=== PATIENT | male | born 1965 | race Caucasian/White ===

== ENCOUNTER 2020-06-01 11:14 | Inpatient (IN) | payer MEDICARE, OTHER ==
--- NOTE | 2020-06-01 11:20 | BHS.RME ---
Substance Use & Tx History - Substance Use History Heroin Substance amount: 4-5 bgs Frequency of use: Daily Substance route: Inhalation (ex: sniffing or snorting) Date of Last Use: 06/01/20 (midnight) Nicotine Substance amount: 6-8 ciggs Frequency of use: Daily Substance route: Smoking Date of Last Use: 06/01/20 Physical/Psych/Mental Status - Behavior General Behavior: Increased activity (restlessness, agitation) Eye Contact: Normal - Cooperativeness Cooperativeness: Cooperative - Thinking Thought Processes: Tight, Logical, Goal Directed - Physical Health Problems Is patient presently having any pain?: No Does patient presently have any injuries (include location): No Does patient currently have a fever: No Is patient : No COWS - Scale Resting Pulse: 0= [place] 80 or Below Sweatin= No chills or Flushing Restless Observation: 1= Difficult to Sit Still Pupil Size: 1= Pupils >than Normal Bone or Joint Aches: 2= Severe Diffuse Aches Runny Nose/ Eye Tearin= Runny Nose/Eyes GI Upset > 30mins: 2= Nausea/Diarrhea Tremor Observation: 1= Tremor [place], Not Seen Yawning Observation: 1= 1-2x During Session Anxiety or Irritability: 1=Feels Anxious/Irritable Goose Flesh Skin: 0=Smooth Skin COWS Score: 11
--- NOTE | 2020-06-01 13:30 | HP ---
<Chin Michaels - Last Filed: 06/01/20 14:43> COWS - Scale Resting Pulse: 0= [place] 80 or Below Sweatin= No chills or Flushing Restless Observation: 1= Difficult to Sit Still Pupil Size: 1= Pupils >than Normal Bone or Joint Aches: 2= Severe Diffuse Aches Runny Nose/ Eye Tearin= Runny Nose/Eyes GI Upset > 30mins: 2= Nausea/Diarrhea Tremor Observation: 1= Tremor [place], Not Seen Yawning Observation: 1= 1-2x During Session Anxiety or Irritability: 1=Feels Anxious/Irritable Goose Flesh Skin: 0=Smooth Skin COWS Score: 11 CIWA Score - Admission Criteria OASAS Guidelines: Admission for Medically Managed Detox: Requires at least one of the followin. CIWA greater than 12 2. Seizures within the past 24 hours 3. Delirium tremens within the past 24 hours 4. Hallucinations within the past 24 hours 5. Acute intervention needed for co occurring medical disorder 6. Acute intervention needed for co occurring psychiatric disorder 7. Severe withdrawal that cannot be handled at a lower level of care (continued vomiting, continued diarrhea, abnormal vital signs) requiring intravenous medication and/or fluids 8. Admitting History and Physical - Admission Chief Complaint: Patientnis requesting for detox and says.. " I want to stop using drugs". History of Present Illness: 54 yo with history of opiod dependency from 2005 to December 2019 and relapse 4-5 months ago. Pat was last at [facility] from Nov 11 to Nov 14 and did not accept referral to MAT. - Substance Use History Heroin Substance amount: 4-5 bgs Frequency of use: Daily Substance route: Inhalation (ex: sniffing or snorting) Date of Last Use: 06/01/20 (midnight) Nicotine Substance amount: 6-8 ciggs Frequency of use: Daily Substance route: Smoking Date of Last Use: 06/01/20 PMH: hEPATITIS C UNTREATED. PSH: Right inguinal hernia repair Psych: Depression on quatiapine Patient is homeles, living in [address] and has no legal issues. COWS= 11 History Source: Patient Limitations to Obtaining History: No Limitations - Past Medical History Hepatobiliary: Yes: Hepatitis C - Past Surgical History Past Surgical History: Yes: Hernia Repair - Smoking History Smoking history: Current every day smoker Have you smoked in the past 12 months: Yes Aproximately how many cigarettes per day: 10 - Alcohol/Substance Use Hx Alcohol Use: Yes - Social History Usual Living Arrangement: Yes: Other Do you think of yourself as: Declined to answer ADL: Independent Occupation: Unemployed operations and maintenance supervisor History of Recent Travel: No Admission ROS BHS - HPI Allergies/Adverse Reactions: Allergies Allergy/AdvReac Type Severity Reaction Status Date / Time No Known Allergies Allergy Verified 06/01/20 14:23 Exam Limitations: No Limitations - Ebola screening Have you traveled outside of the country in the last 21 days: No Have you had contact with anyone from an Ebola affected area: No Have you been sick,other than usual withdrawal symptoms: No Do you have a fever: No - Review of Systems Constitutional: No Symptoms Reported EENT: reports: No Symptoms Reported Respiratory: reports: No Symptoms reported Cardiac: reports: Other (Left shpulder pain radiating to left arm) GI: reports: No Symptoms Reported : reports: No Symptoms Reported Musculoskeletal: reports: No Symptoms Reported Integumentary: reports: No Symptoms Reported Neuro: reports: No Symptoms reported Endocrine: reports: No Symptoms Reported Hematology: reports: No Symptoms Reported Psychiatric: reports: No Sypmtoms Reported Other Systems: Reviewed and Negative Patient History - Patient Medical History Hx Asthma: No Hx Chronic Obstructive Pulmonary Disease (COPD): No Hx Cardiac Disorders: No Hx Hypertension: No Hx Seizures: No Hx Diabetes: No Hx Gastrointestinal Disorders: No Hx Liver Disease: Yes Hx Genitourinary Disorders: No Hx Sexually Transmitted Disorders: No Hx Renal Disease (ESRD): No Hx Thyroid Disease: No Hx Hepatitis C: Yes Hx Depression: Yes Hx Suicide Attempt: No Hx Schizophrenia: No - Patient Surgical History Past Surgical History: Yes Hx Neurologic Surgery: No Hx Cataract Extraction: No Hx Cardiac Surgery: No Hx Lung Surgery: No Hx Breast Surgery: No Hx Breast Biopsy: No Hx Abdominal Surgery: No Hx Appendectomy: No Hx Cholecystectomy: No Hx Genitourinary Surgery: No Hx Section: No Hx Orthopedic Surgery: No Anesthesia Reaction: No - PPD History Previous Implant?: Yes Documented Results: Negative w/o proof Implanted On Prior [facility] Admission?: No PPD to be Administered?: Yes - Smoking Cessation Smoking history: Current every day smoker Have you smoked in the past 12 months: Yes Aproximately how many cigarettes per day: 10 Hx Chewing Tobacco Use: No Initiated information on smoking cessation: Yes 'Breaking Loose' booklet given: 06/01/20 Admission Physical Exam BHS - Physical General Appearance: Yes: Within Normal Limits, No Apparent Distress, Nourished, Appropriately Dressed HEENTM: Yes: Within Normal Limits, EOMI, Hearing grossly Normal, Normocephalic, Normal Voice Respiratory: Yes: Within Normal Limits, Chest Non-Tender, Lungs Clear, Normal Breath Sounds, No Respiratory Distress, No Accessory Muscle Use Neck: Yes: Within Normal Limits, No masses,lesions,Nodules, Supple, Trachea in good position Breast: Yes: Within Normal Limits Cardiology: Yes: Within Normal Limits, Regular Rhythm, Regular Rate, S1, S2 Abdominal: Yes: Within Normal Limits, Non Tender Genitourinary: Yes: Within Normal Limits Back: Yes: Within Normal Limits, Normal Inspection Musculoskeletal: Yes: Within Normal Limits, full range of Motion Extremities: Yes: Within Normal Limits, Normal Inspection, Normal Range of Motion, Non-Tender, Other (healed wound left lower hutchins .) Neurological: Yes: Within Normal Limits Integumentary: Yes: Within Normal Limits Lymphatic: Yes: Within Normal Limits Breathalyzer - Breathalyzer Breathalyzer: 0 Urine Drug Screen - Test Device Lot number: [id number] Expiration date: 07/01/21 - Control Is test valid?: Yes - Results Urine drug screen results: FEN-Fentanyl, MOP-Opiates, OXY-Oxycodone, BZO- Benzodiazepines Inpatient Rehab Admission - Rehab Decision to Admit Inpatient rehab admission?: No <Negar Au - Last Filed: 06/01/20 14:49> CIWA Score - Admission Criteria OASAS Guidelines: Admission for Medically Managed Detox: Requires at least one of the followin. CIWA greater than 12 2. Seizures within the past 24 hours 3. Delirium tremens within the past 24 hours 4. Hallucinations within the past 24 hours 5. Acute intervention needed for co occurring medical disorder 6. Acute intervention needed for co occurring psychiatric disorder 7. Severe withdrawal that cannot be handled at a lower level of care (continued vomiting, continued diarrhea, abnormal vital signs) requiring intravenous medication and/or fluids 8. Admitting History and Physical - Admission History of Present Illness: Pt states he has had a seizure in the past not related to drug or alcohol use. We have no record of antiseizure medications. Will observe at this time Admission Physical Exam BHS - Vital Signs Vital Signs: Vital Signs - 24 hr 06/01/20 14:36 Temperature 98.2 F Pulse Rate 89 Respiratory 16 Rate Blood Pressure 125/82
[2020-06-01] MEDS ORDERED: MAGNESIUM HYDROX 2400MG/30ML ORAL SUSPENSION 30 ML CUP PO PRN (14:11)
[2020-06-01] MEDS ORDERED: ACETAMINOPHEN 325 MG TABLET (FP) PO PRN ×2 (14:11)
[2020-06-01] MEDS ORDERED: BISMUTH SUBSALICYLATE 524 MG/30 ML UD PO PRN (14:11)
[2020-06-01] MEDS ORDERED: METHOCARBAMOL 500 MG TABLET PO PRN (14:11)
[2020-06-01] MEDS ORDERED: ONDANSETRON *ODT* 4 MG TABLET SL PRN (14:11)
[2020-06-01] MEDS ORDERED: cloNIDine HCL 0.1 MG TABLET PO PRN (14:11)
[2020-06-01] MEDS ORDERED: METHADONE HCL 10 MG TABLET (FOR DETOX USE ONLY) PO ONE (14:11)
[2020-06-01] MEDS ORDERED: MAGNESIUM CITRATE 300 ML BOTTLE PO PRN (14:11)
[2020-06-01] MEDS ORDERED: MAG HYDROX/AL HYDROX/SIMETH 30 ML UNIT-DOSE CUP PO PRN (14:11)
[2020-06-01] MEDS ORDERED: IBUPROFEN 400 MG TABLET (FP) PO PRN (14:11)
[2020-06-01] MEDS ORDERED: MENTHOL/PHENOL 1 EACH UD MM PRN (14:11)
[2020-06-01] MEDS ORDERED: NICOTINE POLACRILEX 2 MG GUM BUC PRN (14:11)
[2020-06-01] MEDS ORDERED: PRENATAL VITAMINS W/ FOLIC ACID TABLET (FP) PO SCH (14:15)
[2020-06-01 14:38] VITALS: BMI 26.6
[2020-06-01] MEDS: NICOTINE 7 MG/24 HOURS TOPICAL PATCH TD SCH (15:25)
[2020-06-01] MEDS ORDERED: hydrOXYzine PAMOATE 25 MG CAPSULE (FP) PO PRN (15:36)
[2020-06-01 17:09] LABS: HEMATOCRIT 34.9 % (35.4-49); HEMOGLOBIN 11.6 GM/dL (11.7-16.9); MCHC 33.2 g/dl (32.0-35.9); MEAN CELL VOLUME 90.4 fl (80-96); MEAN PLT VOLUME 8.9 fl (7.5-11.1); PLATELET COUNT 229 K/MM3 (134-434); RBC 3.86 M/mm3 (4.00-5.60); RDW 13.7 % (11.9-15.9); WHITE BLOOD COUNT 4.7 K/mm3 (4.0-10.0)
[2020-06-01 17:23] LABS: ALBUMIN 3.7 g/dl (3.4-5.0); BILIRUBIN,TOTAL 0.5 mg/dL (0.2-1); BLOOD UREA NITROGEN 19.2 mg/dL (7-18); CALCIUM 8.8 mg/dL (8.5-10.1); CREATININE 0.9 mg/dL (0.55-1.3); POTASSIUM 4.3 mmol/L (3.5-5.1); TOT PROT 6.5 g/dl (6.4-8.2)
[2020-06-01] MEDS ORDERED: hydrOXYzine PAMOATE 25 MG CAPSULE (FP) PO SCH (18:00)
[2020-06-01] MEDS: THIAMINE HCL 100 MG TABLET (FP) PO SCH (22:05)
[2020-06-01] MEDS: MELATONIN 5 MG TABLETS PO SCH (22:05)
[2020-06-02] MEDS ORDERED: METHADONE HCL 5 MG TABLET (FOR DETOX USE ONLY) ONE (09:07)
[2020-06-02] MEDS ORDERED: METHADONE HCL 10 MG TABLET (FOR DETOX USE ONLY) ONE (09:09)
[2020-06-02] MEDS ORDERED: METHADONE (DETOX) 20 MG, METHADONE (DETOX) 5 MG PO ONE (10:00)
[2020-06-02] MEDS: NICOTINE 7 MG/24 HOURS TOPICAL PATCH TD SCH (10:06)
[2020-06-02] MEDS: METHYL SALICYLATE/MENTHOL OINT 30 GM TUBE TP SCH ×2 (10:06→22:14)
[2020-06-02] MEDS: PRENATAL VITAMINS W/ FOLIC ACID TABLET (FP) PO SCH (10:07)
[2020-06-02] MEDS: diazePAM 5 MG TABLET PO PRN (10:10)
[2020-06-02] MEDS: IBUPROFEN 400 MG TABLET (FP) PO PRN (10:11)
--- NOTE | 2020-06-02 11:21 | PN ---
S COWS - Scale Resting Pulse: 0= [place] 80 or Below Sweatin= Chills/Flushing Restless Observation: 1= Difficult to Sit Still Pupil Size: 0= Normal to Room Light Bone or Joint Aches: 2= Severe Diffuse Aches Runny Nose/ Eye Tearin= Runny Nose/Eyes GI Upset > 30mins: 0= None Tremor Observation of Outstretched Hands: 2= Slight Tremor Visible Yawning Observation: 1= 1-2x During Session Anxiety or Irritability: 2=Irritable/Anxious Goose Flesh Skin: 0=Smooth Skin COWS Score: 11 [facility] Progress Note (SOAP) Subjective: anxiety sweats swollen right ankle agitation shakes interrupted sleep Objective: 06/02/20 11:23 Vital Signs Temperature 97.3 F L 06/02/20 08:34 Pulse Rate 70 06/02/20 08:34 Respiratory Rate 19 06/02/20 08:34 Blood Pressure 131/65 06/02/20 08:34 O2 Sat by Pulse Oximetry (%) 97 06/02/20 05:58 Laboratory Tests 06/01/20 06/01/20 06/01/20 13:00 13:00 13:00 WBC 4.7 RBC 3.86 L Hgb 11.6 L Hct 34.9 L MCV 90.4 MCH 30.0 MCHC 33.2 RDW 13.7 Plt Count 229 MPV 8.9 Sodium 140 Potassium 4.3 Chloride 104 Carbon Dioxide 33 H Anion Gap 3 L BUN 19.2 H Creatinine 0.9 Est GFR (CKD-EPI)AfAm 111.05 Est GFR (CKD-EPI)NonAf 95.81 Random Glucose 94 Calcium 8.8 Total Bilirubin 0.5 AST 13 L ALT 17 Alkaline Phosphatase 62 Total Protein 6.5 Albumin 3.7 Syphilis Serology Non-reactive labs noted aaox3 ambulating no acute distress Assessment: 06/02/20 11:23 withdrawals ankle assessed; mild swelling noted, pt denies any injury to foot. pt encouraged to keep foot elevated, analgesic balm ordered, motrin 800mg prn also ordered. Plan: continue detox valium 10mg prn x 3 days motrin 800mg prn roboxin prn tylenol prn anlagesic balm
--- NOTE | 2020-06-02 14:09 | EKG ---
Test Reason : Blood Pressure : / mmHG Vent. Rate : 066 BPM Atrial Rate : 066 BPM P-R Int : 144 ms QRS Dur : 108 ms QT Int : 418 ms P-R-T Axes : 036 -02 030 degrees QTc Int : 438 ms NORMAL SINUS RHYTHM NORMAL ECG WHEN COMPARED WITH ECG OF 11-NOV-2019 19:32, NO SIGNIFICANT CHANGE WAS FOUND Confirmed by MARK HUSSEIN MD ([id number]) on 06/02/2020 2:08:57 PM Referred By: Confirmed By:MARK HUSSEIN MD
--- NOTE | 2020-06-02 16:29 | CONSULT ---
[facility] Psychiatric Consult - Data Date of interview: 06/02/20 Admission source: [facility] Identifying data: Patient is a 54 year old single [place] male, unemployed, domiciled, and is supported by [facility]. This is one of multiple admissions for patient. Patient admitted to for opioid and benzodiazepine dependence. Substance Abuse History: Substance Use History. Heroin. Substance amount: 4-5 bgs. Frequency of use: Daily. Substance route: Inhalation (ex: sniffing or snorting). Date of Last Use: 06/01/20 (midnight). Nicotine. Substance amount: 6-8 ciggs. Frequency of use: Daily. Substance route: Smoking Medical History: Asthma Psychiatric History: Mr. Yeung's first psychiatric contact was in 1999 after he saw a psychiatrist in an outpatient clinic in the [place] due to his depre sssion. Throughout the years he has seen several outpatient psychiatrist in the [place] and in [place]. Patient reports history of depression and anxiety. Reports most recently seeing a psychiatrist last month in the [place], [place] but reports medication noncompliance for several months. States that he is prescribed xanac, zoloft (unsure of dose) and seroquel 100mg HS. Patient denies history of suicide attempt but as per previous consultation with patient on 11/2019 he reported history of one suicide attempt by hanging in the after he was arrested. At present patient reports difficulty sleeping. He denies thoughts or urges to hurt himself or others. Physical/Sexual Abuse/Trauma History: denies. Mental Status Exam - Mental Status Exam Alert and Oriented to: Time, Place, Person Cognitive Function: Good Patient Appearance: Well Groomed Mood: Withdrawn Affect: Mood Congruent Patient Behavior: Fatigued, Cooperative Speech Pattern: Appropriate Voice Loudness: Mildly Soft/Quiet Thought Process: Goal Oriented Thought Disorder: Not Present Hallucinations: Denies Suicidal Ideation: Denies Homicidal Ideation: Denies Insight/Judgement: Poor Sleep: Poorly Appetite: Fair Muscle strength/Tone: Normal Gait/Station: Other (Did not observe patient's gait.) Psychiatric Findings - Problem List ([place] 1, 2,3) (1) Opioid dependence with withdrawal Current Visit: Yes Status: Acute (2) Alcohol use disorder Current Visit: Yes Status: Acute (3) Substance induced mood disorder Current Visit: Yes Status: Acute (4) Substance-induced sleep disorder Current Visit: Yes Status: Acute - Initial Treatment Plan Initial Treatment Plan: Psychoeducation provided. Detoxification in progress. Will order Zoloft 25mg + Seroquel 25mg (patient's request). Benefits and side effects discussed. Verbal consent given.
[2020-06-02] MEDS ORDERED: QUEtiapine FUMARATE 50 MG TABLET PO SCH (22:00)
[2020-06-02] MEDS: MELATONIN 5 MG TABLETS PO SCH (22:02)
[2020-06-02] MEDS: THIAMINE HCL 100 MG TABLET (FP) PO SCH (22:02)
[2020-06-02] MEDS: QUEtiapine FUMARATE 25 MG TABLET PO SCH (22:12)
[2020-06-03] MEDS ORDERED: METHADONE HCL 10 MG TABLET (FOR DETOX USE ONLY) PO ONE (10:00)
[2020-06-03] MEDS: NICOTINE 7 MG/24 HOURS TOPICAL PATCH TD SCH (10:07)
[2020-06-03] MEDS: PRENATAL VITAMINS W/ FOLIC ACID TABLET (FP) PO SCH (10:07)
[2020-06-03] MEDS: SERTRALINE HCL 25 MG TABLET (FP) PO SCH (10:07)
[2020-06-03] MEDS: METHYL SALICYLATE/MENTHOL OINT 30 GM TUBE TP SCH ×2 (10:07→22:06)
--- NOTE | 2020-06-03 12:39 | PN ---
S COWS - Scale Resting Pulse: 0= [place] 80 or Below Sweatin= No chills or Flushing Restless Observation: 0= Sits Still Pupil Size: 0= Normal to Room Light Bone or Joint Aches: 2= Severe Diffuse Aches Runny Nose/ Eye Tearin= Nasal Congestion GI Upset > 30mins: 2= Nausea/Diarrhea Tremor Observation of Outstretched Hands: 2= Slight Tremor Visible Yawning Observation: 1= 1-2x During Session Anxiety or Irritability: 2=Irritable/Anxious Goose Flesh Skin: 0=Smooth Skin COWS Score: 10 S Progress Note (SOAP) Subjective: alert,irritable,anxious,interrupted sleep,tremor,pain in the right foot and ank le,no erythema,swelling noted,nausea Objective: 06/03/20 12:37 Vital Signs Temperature 97.7 F 06/03/20 08:28 Pulse Rate 75 06/03/20 08:28 Respiratory Rate 18 06/03/20 08:28 Blood Pressure 130/71 06/03/20 08:28 O2 Sat by Pulse Oximetry (%) 98 06/03/20 06:23 06/03/20 12:37 Laboratory Last Values WBC 4.7 K/mm3 (4.0-10.0) 06/01/20 13:00 RBC 3.86 M/mm3 (4.00-5.60) L 06/01/20 13:00 Hgb 11.6 GM/dL (11.7-16.9) L 06/01/20 13:00 Hct 34.9 % (35.4-49) L 06/01/20 13:00 MCV 90.4 fl (80-96) 06/01/20 13:00 MCH 30.0 pg (25.7-33.7) 06/01/20 13:00 MCHC 33.2 g/dl (32.0-35.9) 06/01/20 13:00 RDW 13.7 % (11.9-15.9) 06/01/20 13:00 Plt Count 229 K/MM3 (134-434) 06/01/20 13:00 MPV 8.9 fl (7.5-11.1) 06/01/20 13:00 Sodium 140 mmol/L (136-145) 06/01/20 13:00 Potassium 4.3 mmol/L (3.5-5.1) 06/01/20 13:00 Chloride 104 mmol/L (98-107) 06/01/20 13:00 Carbon Dioxide 33 mmol/L (21-32) H 06/01/20 13:00 Anion Gap 3 MMOL/L (8-16) L 06/01/20 13:00 BUN 19.2 mg/dL (7-18) H 06/01/20 13:00 Creatinine 0.9 mg/dL (0.55-1.3) 06/01/20 13:00 Est GFR (CKD-EPI)AfAm 111.05 06/01/20 13:00 Est GFR (CKD-EPI)NonAf 95.81 06/01/20 13:00 Random Glucose 94 mg/dL (74-106) 06/01/20 13:00 Calcium 8.8 mg/dL (8.5-10.1) 06/01/20 13:00 Total Bilirubin 0.5 mg/dL (0.2-1) 06/01/20 13:00 AST 13 U/L (15-37) L 06/01/20 13:00 ALT 17 U/L (13-61) 06/01/20 13:00 Alkaline Phosphatase 62 U/L (45-117) 06/01/20 13:00 Total Protein 6.5 g/dl (6.4-8.2) 06/01/20 13:00 Albumin 3.7 g/dl (3.4-5.0) 06/01/20 13:00 Syphilis Serology Non-reactive (NONREACTIVE) 06/01/20 13:00 Assessment: 06/03/20 12:37 withdrawal symptom Plan: continue detox methadone regimen regimen,encourage fluid,elevation of the foot and leg,valium 10 mgs po q 4 hrs prn for severe withdrawal
[2020-06-03] MEDS: diazePAM 5 MG TABLET PO PRN (17:02)
[2020-06-03] MEDS: IBUPROFEN 400 MG TABLET (FP) PO PRN (19:03)
[2020-06-03] MEDS: THIAMINE HCL 100 MG TABLET (FP) PO SCH (22:06)
[2020-06-03] MEDS: QUEtiapine FUMARATE 25 MG TABLET PO SCH (22:06)
[2020-06-03] MEDS: MELATONIN 5 MG TABLETS PO SCH (22:06)
[2020-06-04] MEDS ORDERED: METHADONE HCL 10 MG TABLET (FOR DETOX USE ONLY) ONE (09:26)
[2020-06-04] MEDS ORDERED: METHADONE HCL 5 MG TABLET (FOR DETOX USE ONLY) ONE (09:26)
[2020-06-04] MEDS ORDERED: METHADONE (DETOX) 10 MG, METHADONE (DETOX) 5 MG PO ONE (10:00)
[2020-06-04] MEDS: PRENATAL VITAMINS W/ FOLIC ACID TABLET (FP) PO SCH (10:14)
[2020-06-04] MEDS: SERTRALINE HCL 25 MG TABLET (FP) PO SCH (10:14)
[2020-06-04] MEDS: METHYL SALICYLATE/MENTHOL OINT 30 GM TUBE TP SCH ×2 (10:16→22:07)
[2020-06-04] MEDS: NICOTINE 7 MG/24 HOURS TOPICAL PATCH TD SCH (10:16)
--- NOTE | 2020-06-04 13:52 | PN ---
BHS COWS - Scale Resting Pulse: 0= [place] 80 or Below Sweatin= Chills/Flushing Restless Observation: 1= Difficult to Sit Still Pupil Size: 0= Normal to Room Light Bone or Joint Aches: 1= Mild Discomfort Runny Nose/ Eye Tearin= None GI Upset > 30mins: 0= None Tremor Observation of Outstretched Hands: 4= Gross Tremor/Twitching Yawning Observation: 0= None Anxiety or Irritability: 0= None Goose Flesh Skin: 0=Smooth Skin COWS Score: 7 BHS Progress Note (SOAP) Subjective: Anxious, Sweating. Patient reports that current Withdrawal / Detox symptoms are minimal in degree and that he feels well overall. Objective: Patient A & O X 3, Observed Ambulating on Detox Unit Unassisted. In No Acute Distress. 06/04/20 13:48 Laboratory Tests 06/01/20 06/01/20 06/01/20 13:00 13:00 13:00 WBC 4.7 RBC 3.86 L Hgb 11.6 L Hct 34.9 L MCV 90.4 MCH 30.0 MCHC 33.2 RDW 13.7 Plt Count 229 MPV 8.9 Sodium 140 Potassium 4.3 Chloride 104 Carbon Dioxide 33 H Anion Gap 3 L BUN 19.2 H Creatinine 0.9 Est GFR (CKD-EPI)AfAm 111.05 Est GFR (CKD-EPI)NonAf 95.81 Random Glucose 94 Calcium 8.8 Total Bilirubin 0.5 AST 13 L ALT 17 Alkaline Phosphatase 62 Total Protein 6.5 Albumin 3.7 Syphilis Serology Non-reactive COVID-19 (KAITLYNN) 06/01/20 14:55 WBC RBC Hgb Hct MCV MCH MCHC RDW Plt Count MPV Sodium Potassium Chloride Carbon Dioxide Anion Gap BUN Creatinine Est GFR (CKD-EPI)AfAm Est GFR (CKD-EPI)NonAf Random Glucose Calcium Total Bilirubin AST ALT Alkaline Phosphatase Total Protein Albumin Syphilis Serology COVID-19 (KAITLYNN) Not detected Lab Results noted. Patient reports history of Anemia in past. 06/04/20 13:49 Assessment: 06/04/20 13:50 WITHDRAWAL SYMPTOMS. Laboratory Tests 06/01/20 06/01/20 06/01/20 13:00 13:00 13:00 WBC 4.7 RBC 3.86 L Hgb 11.6 L Hct 34.9 L MCV 90.4 MCH 30.0 MCHC 33.2 RDW 13.7 Plt Count 229 MPV 8.9 Sodium 140 Potassium 4.3 Chloride 104 Carbon Dioxide 33 H Anion Gap 3 L BUN 19.2 H Creatinine 0.9 Est GFR (CKD-EPI)AfAm 111.05 Est GFR (CKD-EPI)NonAf 95.81 Random Glucose 94 Calcium 8.8 Total Bilirubin 0.5 AST 13 L ALT 17 Alkaline Phosphatase 62 Total Protein 6.5 Albumin 3.7 Syphilis Serology Non-reactive COVID-19 (KAITLYNN) 06/01/20 14:55 WBC RBC Hgb Hct MCV MCH MCHC RDW Plt Count MPV Sodium Potassium Chloride Carbon Dioxide Anion Gap BUN Creatinine Est GFR (CKD-EPI)AfAm Est GFR (CKD-EPI)NonAf Random Glucose Calcium Total Bilirubin AST ALT Alkaline Phosphatase Total Protein Albumin Syphilis Serology COVID-19 (KAITLYNN) Not detected Lab results noted. Anemia. 06/04/20 13:51 Plan: Continue Detox. Increase Daily Oral Water Intake. Patient is currently receiving daily MVI containing B Vitamins and Iron while admitted for Detox. ]Patient advised to follow-up with [facility] after Discharge from Detox for Anemia noted on detox admission laboratory assessment. Patient verbalized understanding of recommendation. Copies of results of all labs drawn while admitted for detox given to patient at time of discharge from detox unit.
[2020-06-04] MEDS: diazePAM 5 MG TABLET PO PRN (21:08)
[2020-06-04] MEDS: THIAMINE HCL 100 MG TABLET (FP) PO SCH (22:06)
[2020-06-04] MEDS: QUEtiapine FUMARATE 25 MG TABLET PO SCH (22:06)
[2020-06-04] MEDS: MELATONIN 5 MG TABLETS PO SCH (22:07)
[2020-06-05] MEDS ORDERED: METHADONE HCL 10 MG TABLET (FOR DETOX USE ONLY) PO ONE (10:00)
[2020-06-05] MEDS: PRENATAL VITAMINS W/ FOLIC ACID TABLET (FP) PO SCH (10:43)
[2020-06-05] MEDS: NICOTINE 7 MG/24 HOURS TOPICAL PATCH TD SCH (10:43)
[2020-06-05] MEDS: METHYL SALICYLATE/MENTHOL OINT 30 GM TUBE TP SCH ×2 (10:43→21:56)
[2020-06-05] MEDS: SERTRALINE HCL 25 MG TABLET (FP) PO SCH (10:44)
--- NOTE | 2020-06-05 12:45 | PN ---
S CIWA - CIWA Score Nausea/Vomitin-No Nausea/No Vomiting Muscle Tremors: 1-None Visible, but [place] Anxiety: 2 Agitation: 2 Paroxysmal Sweats: 1-Minimal Palms Moist Orientation: 0-Oriented Tacttile Disturbances: 0-None Auditory Disturbances: 0-None Visual Disturbances: 2-Mild Sensitivity Headache: 0-None Present CIWA-Ar Total Score: 8 BHS Progress Note (SOAP) Subjective: Complaints of mild sweat, anxiety and shakes. Objective: 06/05/20 12:43 Vital Signs 06/05/20 06/05/20 05:22 08:37 Temperature 97.8 F 97.3 F L Pulse Rate 60 71 Respiratory 16 16 Rate Blood Pressure 134/76 124/77 O2 Sat by Pulse 99 Oximetry (%) Laboratory Last Values WBC 4.7 K/mm3 (4.0-10.0) 06/01/20 13:00 RBC 3.86 M/mm3 (4.00-5.60) L 06/01/20 13:00 Hgb 11.6 GM/dL (11.7-16.9) L 06/01/20 13:00 Hct 34.9 % (35.4-49) L 06/01/20 13:00 MCV 90.4 fl (80-96) 06/01/20 13:00 MCH 30.0 pg (25.7-33.7) 06/01/20 13:00 MCHC 33.2 g/dl (32.0-35.9) 06/01/20 13:00 RDW 13.7 % (11.9-15.9) 06/01/20 13:00 Plt Count 229 K/MM3 (134-434) 06/01/20 13:00 MPV 8.9 fl (7.5-11.1) 06/01/20 13:00 Sodium 140 mmol/L (136-145) 06/01/20 13:00 Potassium 4.3 mmol/L (3.5-5.1) 06/01/20 13:00 Chloride 104 mmol/L (98-107) 06/01/20 13:00 Carbon Dioxide 33 mmol/L (21-32) H 06/01/20 13:00 Anion Gap 3 MMOL/L (8-16) L 06/01/20 13:00 BUN 19.2 mg/dL (7-18) H 06/01/20 13:00 Creatinine 0.9 mg/dL (0.55-1.3) 06/01/20 13:00 Est GFR (CKD-EPI)AfAm 111.05 06/01/20 13:00 Est GFR (CKD-EPI)NonAf 95.81 06/01/20 13:00 Random Glucose 94 mg/dL (74-106) 06/01/20 13:00 Calcium 8.8 mg/dL (8.5-10.1) 06/01/20 13:00 Total Bilirubin 0.5 mg/dL (0.2-1) 06/01/20 13:00 AST 13 U/L (15-37) L 06/01/20 13:00 ALT 17 U/L (13-61) 06/01/20 13:00 Alkaline Phosphatase 62 U/L (45-117) 06/01/20 13:00 Total Protein 6.5 g/dl (6.4-8.2) 06/01/20 13:00 Albumin 3.7 g/dl (3.4-5.0) 06/01/20 13:00 Syphilis Serology Non-reactive (NONREACTIVE) 06/01/20 13:00 COVID-19 (KAITLYNN) Not detected (Not Detected) 06/01/20 14:55 Labs noted. Assessment: 06/05/20 12:44 Alert and oriented x3, in no acute respiratory distress Full ROM, skin warm to touch, ambulatory on unit without assistance. Mild withdrawal symptoms. Plan: Continue detox protocol. Discharge in AM
[2020-06-05] MEDS: IBUPROFEN 400 MG TABLET (FP) PO PRN (19:56)
[2020-06-05] MEDS: QUEtiapine FUMARATE 25 MG TABLET PO SCH (21:56)
[2020-06-05] MEDS: THIAMINE HCL 100 MG TABLET (FP) PO SCH (21:56)
[2020-06-05] MEDS: MELATONIN 5 MG TABLETS PO SCH (21:56)
[2020-06-06] MEDS ORDERED: METHADONE HCL 5 MG TABLET (FOR DETOX USE ONLY) PO ONE (06:00)
[2020-06-06 09:09] VITALS: BP 127/76; PULSE 64; TEMP 97.8
--- NOTE | 2020-06-06 11:28 | PN ---
BHS COWS - Scale Resting Pulse: 0= [place] 80 or Below Sweatin= No chills or Flushing Restless Observation: 0= Sits Still Pupil Size: 0= Normal to Room Light Bone or Joint Aches: 0= None Runny Nose/ Eye Tearin= None GI Upset > 30mins: 0= None Tremor Observation of Outstretched Hands: 0= None Yawning Observation: 0= None Anxiety or Irritability: 1=Feels Anxious/Irritable Goose Flesh Skin: 0=Smooth Skin COWS Score: 1 BHS Progress Note (SOAP) Subjective: alert,no complaint Objective: 06/06/20 11:27 Vital Signs Temperature 97.8 F 06/06/20 08:29 Pulse Rate 64 06/06/20 08:29 Respiratory Rate 16 06/06/20 08:29 Blood Pressure 127/76 06/06/20 08:29 O2 Sat by Pulse Oximetry (%) 96 06/06/20 05:37 Assessment: 06/06/20 11:27 detox completed,no withdrawal symptom Plan: stable for discharge today,follow up with after care program as arrangement
--- NOTE | 2020-06-06 11:33 | DS ---
[facility] Detox Discharge Summary Admission Date: 06/01/20 Discharge Date: 06/06/20 - History Present History: Opioid Dependence Additional Comments: alert,no complaint,oriented x 3 ambulation on the unit lung clear on auscultation bilaterally abdomen soft,no distension,no pain or tenderness detox completed,no withdrawal symptom patient is stable for discharge today follow up with after [facility] program rehab at [facility] as arrangement Pertinent Past History: hepatitis c nicotine dependence insomnia - Physical Exam Results Vital Signs: Vital Signs Temperature 97.8 F 06/06/20 08:29 Pulse Rate 64 06/06/20 08:29 Respiratory Rate 16 06/06/20 08:29 Blood Pressure 127/76 06/06/20 08:29 O2 Sat by Pulse Oximetry (%) 96 06/06/20 05:37 Pertinent Admission Physical Exam Findings: withdrawal signs and symptom Vital Signs Temperature 97.8 F 06/06/20 08:29 Pulse Rate 64 06/06/20 08:29 Respiratory Rate 16 06/06/20 08:29 Blood Pressure 127/76 06/06/20 08:29 O2 Sat by Pulse Oximetry (%) 96 06/06/20 05:37 Laboratory Last Values WBC 4.7 K/mm3 (4.0-10.0) 06/01/20 13:00 RBC 3.86 M/mm3 (4.00-5.60) L 06/01/20 13:00 Hgb 11.6 GM/dL (11.7-16.9) L 06/01/20 13:00 Hct 34.9 % (35.4-49) L 06/01/20 13:00 MCV 90.4 fl (80-96) 06/01/20 13:00 MCH 30.0 pg (25.7-33.7) 06/01/20 13:00 MCHC 33.2 g/dl (32.0-35.9) 06/01/20 13:00 RDW 13.7 % (11.9-15.9) 06/01/20 13:00 Plt Count 229 K/MM3 (134-434) 06/01/20 13:00 MPV 8.9 fl (7.5-11.1) 06/01/20 13:00 Sodium 140 mmol/L (136-145) 06/01/20 13:00 Potassium 4.3 mmol/L (3.5-5.1) 06/01/20 13:00 Chloride 104 mmol/L (98-107) 06/01/20 13:00 Carbon Dioxide 33 mmol/L (21-32) H 06/01/20 13:00 Anion Gap 3 MMOL/L (8-16) L 06/01/20 13:00 BUN 19.2 mg/dL (7-18) H 06/01/20 13:00 Creatinine 0.9 mg/dL (0.55-1.3) 06/01/20 13:00 Est GFR (CKD-EPI)AfAm 111.05 06/01/20 13:00 Est GFR (CKD-EPI)NonAf 95.81 06/01/20 13:00 Random Glucose 94 mg/dL (74-106) 06/01/20 13:00 Calcium 8.8 mg/dL (8.5-10.1) 06/01/20 13:00 Total Bilirubin 0.5 mg/dL (0.2-1) 06/01/20 13:00 AST 13 U/L (15-37) L 06/01/20 13:00 ALT 17 U/L (13-61) 06/01/20 13:00 Alkaline Phosphatase 62 U/L (45-117) 06/01/20 13:00 Total Protein 6.5 g/dl (6.4-8.2) 06/01/20 13:00 Albumin 3.7 g/dl (3.4-5.0) 06/01/20 13:00 Syphilis Serology Non-reactive (NONREACTIVE) 06/01/20 13:00 COVID-19 ([place]) Not detected (Not Detected) 06/01/20 14:55 - Treatment Hospital Course: Detox Protocol Followed, Responded well, Discharged Condition Good, Rehab Referral Accepted Patient has Accepted a Rehab Referral to: [facility] - Medication Discharge Medications: Ambulatory Orders Quetiapine Fumarate [Seroquel -] 50 mg PO HS 06/01/20 - Diagnosis (1) Opioid dependence with withdrawal Status: Acute (2) Alcohol use disorder Status: Acute (3) Substance induced mood disorder Status: Acute (4) Substance-induced sleep disorder Status: Acute (5) Nicotine dependence, unspecified, uncomplicated Status: Chronic Qualifiers: Nicotine product type: cigarettes Qualified Code(s): F17.210 - Nicotine dependence, cigarettes, uncomplicated - AMA Did Patient Leave Against Medical Advice: No
== END 2020-06-06 09:41 | disposition home or self-care (01) | DRG 897 ==
LOC: YASAS 11:14 → Y6N 14:47
PROVIDERS: ADMIT Allergy & Immunology; ATTEND Allergy & Immunology
PROC: HZ2ZZZZ Detoxification Services for Substance Abuse Treatment (ICD-10-PCS; principal; 2020-06-01)
DX: F11.23 Opioid dependence with withdrawal (principal); F13.20 Sedative, hypnotic or anxiolytic dependence, uncomplicated; F19.282 Other psychoactive substance dependence with psychoactive substance-induced sleep disorder; F10.20 Alcohol dependence, uncomplicated; F17.210 Nicotine dependence, cigarettes, uncomplicated; F19.24 Other psychoactive substance dependence with psychoactive substance-induced mood disorder; F32.9 Major depressive disorder, single episode, unspecified; G47.00 Insomnia, unspecified; J45.909 Unspecified asthma, uncomplicated; B18.2 Chronic viral hepatitis C; Z86.2 Personal history of diseases of the blood and blood-forming organs and certain disorders involving the immune mechanism; Z98.890 Other specified postprocedural states; Z56.0 Unemployment, unspecified; Z59.0 Homelessness
CPT/HCPCS: 36415; 71045-TC-FY; 80053; 85027; 86780; 93005; 93010; U0003

== ENCOUNTER 2021-02-10 18:33 | Inpatient (IN) | payer MEDICARE, OTHER ==
[2021-02-10 19:58] VITALS: BMI 28.3
[2021-02-10] MEDS ORDERED: MAGNESIUM HYDROX 2400MG/30ML ORAL SUSPENSION 30 ML CUP PO PRN (23:57)
[2021-02-10] MEDS ORDERED: MAG HYDROX/AL HYDROX/SIMETH 30 ML UNIT-DOSE CUP PO PRN (23:57)
[2021-02-10] MEDS ORDERED: ACETAMINOPHEN 325 MG TABLET (FP) PO PRN ×2 (23:57)
[2021-02-10] MEDS ORDERED: NICOTINE POLACRILEX 2 MG GUM BUC PRN (23:57)
[2021-02-10] MEDS ORDERED: ONDANSETRON *ODT* 4 MG TABLET SL PRN (23:57)
[2021-02-10] MEDS ORDERED: MENTHOL/PHENOL 1 EACH UD MM PRN (23:57)
[2021-02-10] MEDS ORDERED: MAGNESIUM CITRATE 300 ML BOTTLE PO PRN (23:57)
[2021-02-10] MEDS ORDERED: IBUPROFEN 400 MG TABLET (FP) PO PRN (23:57)
[2021-02-10] MEDS ORDERED: BISMUTH SUBSALICYLATE 524 MG/30 ML UD PO PRN (23:57)
[2021-02-11] MEDS ORDERED: chlordiazePOXIDE HCL 25 MG CAPSULE PO ONE (09:13)
[2021-02-11] MEDS ORDERED: chlordiazePOXIDE HCL 25 MG CAPSULE PO PRN ×2 (09:13)
[2021-02-11 10:42] LABS: HEMATOCRIT 36.7 % (35.4-49); HEMOGLOBIN 12.3 GM/dL (11.7-16.9); MCH 28.8 pg (25.7-33.7); MCHC 33.6 g/dl (32.0-35.9); MEAN CELL VOLUME 85.7 fl (80-96); MEAN PLT VOLUME 8.1 fl (7.5-11.1); PLATELET COUNT 182 K/MM3 (134-434); RBC 4.28 M/mm3 (4.00-5.60); RDW 13.7 % (11.9-15.9); WHITE BLOOD COUNT 4.9 K/mm3 (4.0-10.0)
[2021-02-11] MEDS ORDERED: chlordiazePOXIDE HCL 25 MG CAPSULE PO SCH ×2 (11:00→23:00)
[2021-02-11 11:24] LABS: POTASSIUM 4.7 mmol/L (3.5-5.1)
[2021-02-11 11:35] LABS: ALBUMIN 3.5 g/dl (3.4-5.0); BLOOD UREA NITROGEN 18.6 mg/dL (7-18); CALCIUM 8.8 mg/dL (8.5-10.1)
[2021-02-11 11:38] LABS: CREATININE 0.8 mg/dL (0.55-1.3)
[2021-02-11 11:39] LABS: BILIRUBIN,TOTAL 0.3 mg/dL (0.2-1); TOT PROT 6.6 g/dl (6.4-8.2)
[2021-02-11] MEDS: METHOCARBAMOL 500 MG TABLET PO PRN (11:48)
[2021-02-11] MEDS: METHADONE HCL 10 MG TABLET PO SCH (11:48)
[2021-02-11] MEDS: NICOTINE 14 MG/24 HOURS TOPICAL PATCH TD SCH (11:49)
[2021-02-11] MEDS: PRENATAL VITAMINS W/ FOLIC ACID TABLET (FP) PO SCH (11:49)
[2021-02-11] MEDS: chlordiazePOXIDE HCL 25 MG CAPSULE PO SCH ×2 (17:38→22:25)
[2021-02-11] MEDS: THIAMINE HCL 100 MG TABLET (FP) PO SCH (22:25)
[2021-02-11] MEDS: MELATONIN 5 MG TABLETS PO SCH (22:25)
[2021-02-11] MEDS: QUEtiapine FUMARATE 50 MG TABLET PO SCH (22:25)
[2021-02-12] MEDS: chlordiazePOXIDE HCL 25 MG CAPSULE PO SCH ×4 (05:45→22:08)
[2021-02-12] MEDS: METHADONE HCL 10 MG TABLET PO SCH (05:45)
[2021-02-12] MEDS: PRENATAL VITAMINS W/ FOLIC ACID TABLET (FP) PO SCH (10:04)
[2021-02-12] MEDS: GABAPENTIN 100 MG CAPSULE PO SCH (10:05)
[2021-02-12] MEDS: SERTRALINE HCL 50 MG TABLET (FP) PO SCH (10:05)
[2021-02-12] MEDS: NICOTINE 14 MG/24 HOURS TOPICAL PATCH TD SCH (10:06)
[2021-02-12] MEDS: THIAMINE HCL 100 MG TABLET (FP) PO SCH (22:08)
[2021-02-12] MEDS: QUEtiapine FUMARATE 50 MG TABLET PO SCH (22:08)
[2021-02-12] MEDS: MELATONIN 5 MG TABLETS PO SCH (22:10)
[2021-02-13] MEDS ORDERED: chlordiazePOXIDE HCL 25 MG CAPSULE PO SCH (05:00)
[2021-02-13] MEDS: chlordiazePOXIDE HCL 25 MG CAPSULE PO SCH ×5 (06:07→22:41)
[2021-02-13] MEDS: METHADONE HCL 10 MG TABLET PO SCH (06:08)
[2021-02-13] MEDS: PRENATAL VITAMINS W/ FOLIC ACID TABLET (FP) PO SCH (10:45)
[2021-02-13] MEDS: METHOCARBAMOL 500 MG TABLET PO PRN (10:45)
[2021-02-13] MEDS: SERTRALINE HCL 50 MG TABLET (FP) PO SCH (10:45)
[2021-02-13] MEDS: NICOTINE 14 MG/24 HOURS TOPICAL PATCH TD SCH (10:45)
[2021-02-13] MEDS: GABAPENTIN 100 MG CAPSULE PO SCH (10:45)
[2021-02-13] MEDS: QUEtiapine FUMARATE 50 MG TABLET PO SCH (22:40)
[2021-02-13] MEDS: THIAMINE HCL 100 MG TABLET (FP) PO SCH (22:40)
[2021-02-13] MEDS: MELATONIN 5 MG TABLETS PO SCH (22:41)
[2021-02-14] MEDS ORDERED: chlordiazePOXIDE HCL 10 MG CAPSULE PO PRN ×2
[2021-02-14] MEDS ORDERED: chlordiazePOXIDE HCL 10 MG CAPSULE PO SCH (05:00)
[2021-02-14] MEDS: METHADONE HCL 10 MG TABLET PO SCH (06:32)
[2021-02-14] MEDS: chlordiazePOXIDE HCL 10 MG CAPSULE PO SCH ×4 (06:32→22:01)
[2021-02-14] MEDS: GABAPENTIN 100 MG CAPSULE PO SCH (10:53)
[2021-02-14] MEDS: NICOTINE 14 MG/24 HOURS TOPICAL PATCH TD SCH (10:53)
[2021-02-14] MEDS: SERTRALINE HCL 50 MG TABLET (FP) PO SCH (10:53)
[2021-02-14] MEDS: PRENATAL VITAMINS W/ FOLIC ACID TABLET (FP) PO SCH (10:53)
[2021-02-14] MEDS: MELATONIN 5 MG TABLETS PO SCH (22:01)
[2021-02-14] MEDS: THIAMINE HCL 100 MG TABLET (FP) PO SCH (22:01)
[2021-02-14] MEDS: QUEtiapine FUMARATE 50 MG TABLET PO SCH (22:01)
[2021-02-15] MEDS ORDERED: chlordiazePOXIDE HCL 10 MG CAPSULE PO SCH (05:00)
[2021-02-15] MEDS: chlordiazePOXIDE HCL 10 MG CAPSULE PO SCH ×3 (05:27→17:30)
[2021-02-15] MEDS: METHADONE HCL 10 MG TABLET PO SCH ×2 (05:49→06:30)
[2021-02-15] MEDS: GABAPENTIN 100 MG CAPSULE PO SCH (10:22)
[2021-02-15] MEDS: PRENATAL VITAMINS W/ FOLIC ACID TABLET (FP) PO SCH (10:23)
[2021-02-15] MEDS: NICOTINE 14 MG/24 HOURS TOPICAL PATCH TD SCH (10:23)
[2021-02-15] MEDS: SERTRALINE HCL 50 MG TABLET (FP) PO SCH (10:23)
[2021-02-15] MEDS: QUEtiapine FUMARATE 50 MG TABLET PO SCH (22:23)
[2021-02-15] MEDS: MELATONIN 5 MG TABLETS PO SCH (22:23)
[2021-02-15] MEDS: THIAMINE HCL 100 MG TABLET (FP) PO SCH (22:23)
[2021-02-16] MEDS ORDERED: chlordiazePOXIDE HCL 10 MG CAPSULE PO ONE ×2 (05:00)
[2021-02-16] MEDS: METHADONE HCL 10 MG TABLET PO SCH (05:45)
[2021-02-16 09:32] VITALS: BP 120/70; PULSE 76; TEMP 97.7
[2021-02-16] MEDS: GABAPENTIN 100 MG CAPSULE PO SCH (09:50)
[2021-02-16] MEDS: SERTRALINE HCL 50 MG TABLET (FP) PO SCH (09:51)
[2021-02-16] MEDS: NICOTINE 14 MG/24 HOURS TOPICAL PATCH TD SCH (09:51)
[2021-02-16] MEDS: PRENATAL VITAMINS W/ FOLIC ACID TABLET (FP) PO SCH (09:51)
== END 2021-02-16 10:01 | disposition home or self-care (01) | DRG 897 ==
LOC: YASAS 18:33 → Y6N 02-11 09:55
PROVIDERS: ADMIT Allergy & Immunology; ATTEND Allergy & Immunology
PROC: HZ2ZZZZ Detoxification Services for Substance Abuse Treatment (ICD-10-PCS; principal; 2021-02-11)
DX: F10.230 Alcohol dependence with withdrawal, uncomplicated (principal); F11.20 Opioid dependence, uncomplicated; F13.20 Sedative, hypnotic or anxiolytic dependence, uncomplicated; F19.282 Other psychoactive substance dependence with psychoactive substance-induced sleep disorder; F19.280 Other psychoactive substance dependence with psychoactive substance-induced anxiety disorder; F17.210 Nicotine dependence, cigarettes, uncomplicated; F19.24 Other psychoactive substance dependence with psychoactive substance-induced mood disorder; F32.9 Major depressive disorder, single episode, unspecified; J45.909 Unspecified asthma, uncomplicated; B18.2 Chronic viral hepatitis C; Z56.0 Unemployment, unspecified
CPT/HCPCS: 36415; 80053; 85027; 86780; C9803; U0003

== ENCOUNTER 2021-05-02 14:00 | Inpatient (IN) | payer OTHER ==
[2021-05-02 15:06] VITALS: BMI 29.8
[2021-05-02] MEDS ORDERED: MAG HYDROX/AL HYDROX/SIMETH 30 ML UNIT-DOSE CUP PO PRN (20:43)
[2021-05-02] MEDS ORDERED: IBUPROFEN 400 MG TABLET (FP) PO PRN (20:43)
[2021-05-02] MEDS ORDERED: MAGNESIUM HYDROX 2400MG/30ML ORAL SUSPENSION 30 ML CUP PO PRN (20:43)
[2021-05-02] MEDS ORDERED: guaiFENesin 200 MG/10 ML 10 ML UNIT-DOSE CUPS PO PRN (20:43)
[2021-05-02] MEDS ORDERED: LOPERAMIDE HCL 2 MG CAPSULE PO PRN (20:43)
[2021-05-02] MEDS ORDERED: MAGNESIUM CITRATE 300 ML BOTTLE PO PRN (20:43)
[2021-05-02] MEDS ORDERED: P-EPHED 60MG/TRIPROLIDI 2.5MG TABLET PO PRN (20:43)
[2021-05-02] MEDS ORDERED: ACETAMINOPHEN 325 MG TABLET (FP) PO PRN (20:43)
[2021-05-02] MEDS: THIAMINE HCL 100 MG TABLET (FP) PO SCH (22:13)
[2021-05-02] MEDS: MELATONIN 5 MG TABLETS PO SCH (22:15)
[2021-05-03] MEDS ORDERED: METHADONE HCL 10 MG TABLET PO SCH (07:15)
[2021-05-03 10:03] LABS: ALBUMIN 3.7 g/dl (3.4-5.0); BLOOD UREA NITROGEN 17.8 mg/dL (7-18)
[2021-05-03] MEDS: PRENATAL VITAMINS W/ FOLIC ACID TABLET (FP) PO SCH (10:03)
[2021-05-03 10:04] LABS: HEMATOCRIT 41.2 % (35.4-49); HEMOGLOBIN 13.7 GM/dL (11.7-16.9); MCH 29.2 pg (25.7-33.7); MCHC 33.3 g/dl (32.0-35.9); MEAN CELL VOLUME 87.5 fl (80-96); MEAN PLT VOLUME 8.5 fl (7.5-11.1); PLATELET COUNT 159 K/MM3 (134-434); RBC 4.71 M/mm3 (4.00-5.60); RDW 14.4 % (11.9-15.9); WHITE BLOOD COUNT 3.7 K/mm3 (4.0-10.0)
[2021-05-03 10:06] LABS: BILIRUBIN,TOTAL 0.4 mg/dL (0.2-1); CREATININE 0.8 mg/dL (0.55-1.3)
[2021-05-03 10:09] LABS: CALCIUM 8.7 mg/dL (8.5-10.1)
[2021-05-03] MEDS: hydrOXYzine PAMOATE 25 MG CAPSULE (FP) PO PRN (17:24)
[2021-05-03 17:31] LABS: PH,URINE 8.5 (5.0-8.0); URINE APPEARANCE CLOUDY; URINE BILIRUBIN NEGATIVE (NEGATIVE); URINE COLOR YELLOW; URINE GLUCOSE (UA) NEGATIVE (NEGATIVE); URINE KETONE NEGATIVE (NEGATIVE); URINE LEUK ESTERASE NEGATIVE (NEGATIVE); URINE NITRITE NEGATIVE (NEGATIVE); URINE PROTEIN NEGATIVE (NEGATIVE); URINE UROBILINOGEN 0.2 mg/dL (0.2-1.0)
[2021-05-03] MEDS: QUEtiapine FUMARATE 100 MG TABLET (FP) PO SCH (22:09)
[2021-05-03] MEDS: MELATONIN 5 MG TABLETS PO SCH (22:09)
[2021-05-03] MEDS: THIAMINE HCL 100 MG TABLET (FP) PO SCH (22:10)
[2021-05-03] MEDS: diazePAM 5 MG TABLET PO PRN (22:11)
[2021-05-04] MEDS ORDERED: METHADONE HCL 5 MG TABLET (FOR DETOX USE ONLY) ONE (08:39)
[2021-05-04] MEDS ORDERED: METHADONE HCL 10 MG TABLET (FOR DETOX USE ONLY) ONE (08:39)
[2021-05-04] MEDS ORDERED: METHADONE (DETOX) 10 MG, METHADONE (DETOX) 5 MG PO ONE (10:00)
[2021-05-04] MEDS ORDERED: METHADONE HCL 10 MG TABLET (FOR DETOX USE ONLY) PO ONE (10:00)
[2021-05-04] MEDS: PRENATAL VITAMINS W/ FOLIC ACID TABLET (FP) PO SCH (10:31)
[2021-05-04] MEDS: SERTRALINE HCL 50 MG TABLET (FP) PO SCH (10:31)
[2021-05-04] MEDS: diazePAM 5 MG TABLET PO PRN (11:26)
[2021-05-04 14:54] LABS: PH,URINE 6.5 (5.0-8.0); URINE APPEARANCE CLEAR; URINE BILIRUBIN NEGATIVE (NEGATIVE); URINE COLOR YELLOW; URINE GLUCOSE (UA) NEGATIVE (NEGATIVE); URINE KETONE NEGATIVE (NEGATIVE); URINE LEUK ESTERASE NEGATIVE (NEGATIVE); URINE NITRITE NEGATIVE (NEGATIVE); URINE PROTEIN NEGATIVE (NEGATIVE); URINE UROBILINOGEN 0.2 mg/dL (0.2-1.0)
[2021-05-04] MEDS ORDERED: MASKS NR ONE (20:03)
[2021-05-04] MEDS: MELATONIN 5 MG TABLETS PO SCH (22:28)
[2021-05-04] MEDS: THIAMINE HCL 100 MG TABLET (FP) PO SCH (22:28)
[2021-05-04] MEDS: QUEtiapine FUMARATE 100 MG TABLET (FP) PO SCH (22:29)
[2021-05-05] MEDS ORDERED: METHADONE HCL 5 MG TABLET (FOR DETOX USE ONLY) PO ONE (06:00)
[2021-05-05] MEDS ORDERED: METHADONE HCL 10 MG TABLET (FOR DETOX USE ONLY) PO ONE (10:00)
[2021-05-05] MEDS: diazePAM 5 MG TABLET PO PRN ×2 (10:29→22:11)
[2021-05-05] MEDS: PRENATAL VITAMINS W/ FOLIC ACID TABLET (FP) PO SCH (10:29)
[2021-05-05] MEDS: SERTRALINE HCL 50 MG TABLET (FP) PO SCH (10:29)
[2021-05-05] MEDS: hydrOXYzine PAMOATE 25 MG CAPSULE (FP) PO PRN (10:29)
[2021-05-05] MEDS: QUEtiapine FUMARATE 100 MG TABLET (FP) PO SCH (22:09)
[2021-05-05] MEDS: MELATONIN 5 MG TABLETS PO SCH (22:09)
[2021-05-05] MEDS: THIAMINE HCL 100 MG TABLET (FP) PO SCH (22:09)
[2021-05-06] MEDS ORDERED: METHADONE HCL 5 MG TABLET (FOR DETOX USE ONLY) PO ONE (06:00)
[2021-05-06 06:08] LABS: SARS-CoV-2 NAA Not Detected (Not Detected)
[2021-05-06 09:07] VITALS: BP 114/82; PULSE 66; TEMP 96.9
[2021-05-06] MEDS: SERTRALINE HCL 50 MG TABLET (FP) PO SCH (10:20)
[2021-05-06] MEDS: PRENATAL VITAMINS W/ FOLIC ACID TABLET (FP) PO SCH (10:20)
== END 2021-05-06 11:38 | disposition home or self-care (01) | DRG 897 ==
LOC: YASAS 14:00 → Y3W 21:33 → Y3N 05-03 11:37
PROVIDERS: ADMIT Allergy & Immunology; ATTEND Allergy & Immunology
PROC: HZ2ZZZZ Detoxification Services for Substance Abuse Treatment (ICD-10-PCS; principal; 2021-05-02)
DX: F11.23 Opioid dependence with withdrawal (principal); F10.230 Alcohol dependence with withdrawal, uncomplicated; F17.210 Nicotine dependence, cigarettes, uncomplicated; F19.24 Other psychoactive substance dependence with psychoactive substance-induced mood disorder; F32.9 Major depressive disorder, single episode, unspecified; M54.5 Low back pain; G89.29 Other chronic pain; Z86.19 Personal history of other infectious and parasitic diseases; Z86.69 Personal history of other diseases of the nervous system and sense organs
CPT/HCPCS: 36415; 80053; 81003; 85027; 86780; C9803; U0003; U0005